=== PATIENT | female | born 1945 | race Caucasian/White ===

== ENCOUNTER 2022-11-18 10:05 | Observation (INO) ==
[2022-11-18 11:17] LABS: ABS Lymphocytes 0.2 10^3/uL (1.0-4.8); ABS Monocytes 0.1 10^3/uL (0.0-0.9); Eosinophil % 0.3 %; Hemoglobin 13.7 g/dL (11.5-14.3); Lymphocyte % 14.5 %; Mean Corpuscular Hemoglobin 31.2 pg (27-33); Mean Corpuscular Hgb Conc 34.3 g/dL (31-36); Mean Corpuscular Volume 90.9 fL (80-97); Mean Platelet Volume 9.6 fL (7.5-11.2); Nucleated Red Blood Cells % 0.4 /100 WBC (0.0-0.4); Platelet Count 74 10^3/uL (150-450); Red Cell Distribution Width 13.5 % (12-17); White Blood Count 1.2 10^3/uL (3.8-11.8)
[2022-11-18] MEDS ORDERED: Lactated Ringers 1000 ml BAG 1,000 ML IV ONE ×2 (11:17→14:20)
[2022-11-18 11:25] LABS: INR 1.07 (0.83-1.13)
[2022-11-18] MEDS ORDERED: DOXYcycline 100 MG in NS 0.9% 250 ml 250 ML IVPB ONE (11:26)
[2022-11-18 11:36] LABS: Albumin 3.6 g/dL (3.2-5.2); Calcium 8.5 mg/dL (8.6-10.3); Potassium 3.5 mmol/L (3.5-5.0); Total Bilirubin 0.6 mg/dL (0.2-1.0)
[2022-11-18 11:40] LABS: Albumin/Globulin Ratio 1.5 (1-3); C Reactive Protein 112.21 mg/L (<8.01); Creatinine, Serum 0.86 mg/dL (0.51-0.95); Globulin 2.4 g/dL (2-4); eGFR CKD-EPI 70.4 (>60)
[2022-11-18 13:16] LABS: High Sensitivity Troponin 1 Hr 212 pg/mL (<15)
[2022-11-18] MEDS: Enoxaparin 40 MG/0.4 ML SYR SUBCUT SCH (13:55)
[2022-11-18] MEDS: Cefepime 2 GM in Dextrose 2 GM/50 ML BAG IV SCH ×2 (15:43→21:24)
[2022-11-19] MEDS: Cefepime 2 GM in Dextrose 2 GM/50 ML BAG IV SCH ×2 (05:25→13:46)
[2022-11-19 06:04] LABS: Hematocrit 35.6 % (35-45); Hemoglobin 12.3 g/dL (11.5-14.3); Mean Corpuscular Hemoglobin 31.1 pg (27-33); Mean Corpuscular Hgb Conc 34.4 g/dL (31-36); Mean Corpuscular Volume 90.5 fL (80-97); Mean Platelet Volume 10.7 fL (7.5-11.2); Platelet Count 50 10^3/uL (150-450); Red Blood Count 3.94 10^6/uL (3.63-4.92); Red Cell Distribution Width 13.5 % (12-17); White Blood Count 0.6 10^3/uL (3.8-11.8)
[2022-11-19 06:20] LABS: Albumin 3.2 g/dL (3.2-5.2); Albumin/Globulin Ratio 1.5 (1-3); Calcium 8.6 mg/dL (8.6-10.3); Creatinine, Serum 0.77 mg/dL (0.51-0.95); Globulin 2.1 g/dL (2-4); Potassium 3.4 mmol/L (3.5-5.0); Total Bilirubin 0.5 mg/dL (0.2-1.0); Total Protein 5.3 g/dL (6.4-8.9); eGFR CKD-EPI 80.4 (>60)
[2022-11-19] MEDS ORDERED: Potassium Chlor 20 meq TAB.ER PO ONE (08:21)
[2022-11-19 09:03] LABS: ABS Lymphocytes 0.3 10^3/uL (1.0-4.8); ABS Monocytes 0.1 10^3/uL (0.0-0.9); ABS Neutrophils 0.3 10^3/uL (1.5-7.6); ABS Nucleated RBC 0.01 10^3/ul; Eosinophil % 0.2 %; Lymphocyte % 42.2 %; Nucleated Red Blood Cells % 1.8 /100 WBC (0.0-0.4)
[2022-11-19] MEDS: Enoxaparin 40 MG/0.4 ML SYR SUBCUT SCH (12:11)
[2022-11-19] MEDS: Lactated Ringers 1000 ml BAG 1,000 ML IV SCH (13:46)
[2022-11-19] MEDS: DOXYcycline 100 MG in NS 0.9% 250 ml 250 ML IVPB SCH (17:31)
[2022-11-20] MEDS: Lactated Ringers 1000 ml BAG 1,000 ML IV SCH (03:58)
[2022-11-20] MEDS: DOXYcycline 100 MG in NS 0.9% 250 ml 250 ML IVPB SCH (03:59)
[2022-11-20 08:26] LABS: Hematocrit 31.7 % (35-45); Hemoglobin 11.1 g/dL (11.5-14.3); Mean Corpuscular Hemoglobin 31.6 pg (27-33); Mean Corpuscular Hgb Conc 34.9 g/dL (31-36); Mean Corpuscular Volume 90.4 fL (80-97); Red Blood Count 3.51 10^6/uL (3.63-4.92); Red Cell Distribution Width 13.7 % (12-17); White Blood Count 2.2 10^3/uL (3.8-11.8)
[2022-11-20 08:32] LABS: Albumin 2.9 g/dL (3.2-5.2); Albumin/Globulin Ratio 1.5 (1-3); Calcium 8.1 mg/dL (8.6-10.3); Creatinine, Serum 0.64 mg/dL (0.51-0.95); Globulin 1.9 g/dL (2-4); Potassium 3.7 mmol/L (3.5-5.0); Total Bilirubin 0.4 mg/dL (0.2-1.0); Total Protein 4.8 g/dL (6.4-8.9); eGFR CKD-EPI 92.1 (>60)
[2022-11-20 09:14] LABS: ABS Neutrophils 0.6 10^3/uL (1.5-7.6)
[2022-11-20 09:16] LABS: RBC Morphology Normal (Normal)
[2022-11-20 09:17] LABS: ABS Lymphocytes 1.3 10^3/uL (1.0-4.8); ABS Monocytes 0.3 10^3/uL (0.0-0.9); ABS Nucleated RBC 0.01 10^3/ul; Eosinophil % 1.2 %; Lymphocyte % 58.6 %; Nucleated Red Blood Cells % 0.5 /100 WBC (0.0-0.4); Platelet Count 55 10^3/uL (150-450)
[2022-11-20 10:50] VITALS: BP 127/73
[2022-11-21 10:44] LABS: Anaplasma phagocytophilum Positive (Negative); B. miyamotoi PCR, B Negative (Negative); Babesia divergens/MO-1 Negative (Negative); Babesia ducani Negative (Negative); Ehrlichia chaffeensis Negative (Negative); Ehrlichia ewingii/canis Negative (Negative); Ehrlichia muris eauclairensis Negative (Negative)
[2022-11-21 15:45] LABS: IgG Immunoblot Negative (Negative); IgM Immunoblot Negative (Negative)
== END 2022-11-20 13:58 | disposition home or self-care (01) ==
LOC: EDHOLD 10:05 → ED 10:05 → MEDTELE 14:51
PROVIDERS: ADMIT Internal Medicine; ATTEND Internal Medicine